=== PATIENT | male | born 1980 | race Caucasian/White ===

== ENCOUNTER 2018-11-19 23:38 | Inpatient (IN) | payer BC, SELFPAY ==
[2018-11-19 23:39] VITALS: BP 128/74; PULSE 87; RESP 14; TEMP 36.1; O2SAT 98; BMI 29.1
[2018-11-20] VITALS (10 sets, daily range): BP systolic 114–134; BP diastolic 63–86; PULSE 52–85; RESP 14–16; TEMP 36.5–37.2; O2SAT 97–100; BMI 26.8
--- NOTE | 2018-11-20 00:58 | ED.VIS.GEN ---
History of Present Illness Chief Complaint: Substance Abuse Informant: Patient Onset: Today Context: Gradual Onset Timing: Continuous Quality: shaky, anxious Location: all over Current Severity: Moderate Maximum Severity: Moderate Worsened by: nothing Relieved by: using heroin, historically Associated Symptoms: abd cramping, nausea, sweats Narrative: Patient. The has a history of it, recently relapsed and has been using daily for 1 to 2 months. Discussed with [facility] and advised to come to the emergency department. Last use was earlier this morning, he has been having withdrawal symptoms tonight. Past Medical History - Allergies and Home Meds Allergies/Adverse Reactions: Allergies Penicillins Allergy (Verified 11/19/18 23:39) Angioedema Primary Care Physician: NOT,DEFINED [NON-STAFF] - Past Medical History: None Lives: Alone Smoking Status: Current every day smoker Alcohol: None Drugs: Heroin - No other drugs Review of Systems General: Reports: Malaise - And shaking all over. Denies: Chills, Fever, Sweats Eyes: Denies: Visual changes - bilaterally, Diplopia ENT: Denies: Rhinorrhea, Sore throat Cardiovascular: Denies: Chest pain, Palpitations Respiratory: Denies: Dyspnea, Cough, Dyspnea on exertion Gastrointestinal: Reports: Abdominal pain, Nausea, Vomiting - occ dry heaves earlier. Denies: Diarrhea, Melena, Hematochezia Genitourinary: Denies: Dysuria, Hematuria, Frequency Musculoskeletal: Denies: Back pain, Extremity Pain Skin: Denies: Rash, Wounds Neurological: Denies: Headache, Weakness, Numbness Psych: Reports: Anxiety. Denies: Suicidal thoughts, Suicidal ideations Physical Exam Vital Signs/Narrative: Vital Signs Temp Pulse Resp BP Pulse Ox 11/19/18 23:39 96.9 F L 87 14 128/74 H 98 Inital Vital Signs reviewed: Yes General: Well nourished, Well developed, No Acute Distress Head: Normocephalic, Atraumatic Eyes: Perrl, EOMI ENT: Moist mucous membranes, No rhinorrhea Neck: Supple, Nontender Cardiovascular: Regular rate, Regular rhythm, No murmurs Respiratory: No distress, CTA bilaterally, Chest nontender Abdomen: Soft, Nontender, Nondistended, Normal bowel sounds Back: Nontender, Normal Inspection Extremities: Nontender, No edema Skin: Normal color, No rash, No Trauma, - - No sign of infected foot or arm track martines. Neurological: Alert, Oriented x3, Cranial nerves II-XII grossly intact, Normal Strength, Normal Sensation Psychological: Normal affect, Normal Mood Diagnostic/Tx/Re-eval - Medical Decision Making His CINA score is 15. Work-up unremarkable. Clinically stable and medically cleared for admission for detox. ED Disposition - Plan for ED Patient: Disposition: Acute Care Hospital [facility] Diagnosis: Opiate dependence Referrals: NOT,DEFINED [NON-STAFF] -
--- NOTE | 2018-11-20 01:01 | PCM.HP.STD ---
Problem List (1) Polysubstance dependence Status: Acute (2) Opioid withdrawal Status: Acute History of Present Illness Date of Admission: 11/20/18 Chief Complaint: polysubstance withdrawal The patient is a 38 year old M with a significant history of tobacco abuse; polysubstance dependence who presented because of withdrawal symptoms. Patient has been shooting heroin into his arm about 3 times every day. The last time that he used heroin was in the morning of the day of his presentation. He complains of tremors and watery discharge from his eyes and his nose. Also he uses crystal meth. Last time he used crystal meth was about 3 days to 1 week. At the emergency department his Cina score was 15. In 2009 he went to a drug withdrawal program at the [facility]. However in September 2018 he relapsed. Reportedly he called [facility] and he was instructed to come to the emergency department. Past Medical History Medical History: Medical History (Last Reviewed 11/20/18 @ 05:07 by Heri Dwyer MD) No Previous medical history Allergies Penicillins Allergy (Verified 11/19/18 23:39) Angioedema Surgical History: no surgical history Lives: With Family Smoking Status: Current every day smoker Tobacco Use: Cigarettes Alcohol: None Drugs: - - Heroin and crystal meth - *Family History Maternal History Items: Diabetes - His paternal grandfather developed diabetes after losing his pancreas from a motor vehicle accident., - Paternal History Items: - - Patient denies knowledge of any paternal medical history Review of Systems Constitutional: Denies: Chills, Fever, Weight Change HEENT: Denies: Head Aches, Sinus Congestion, Sinus Drainage Cardiovascular: Denies: Chest Pain, Palpitations Respiratory: Denies: Cough, Shortness of breath at rest, Sputum production Gastrointestinal: Reports: Abdominal Pain, Nausea Genitourinary: Denies: Dysuria Musculoskeletal: Reports: Muscle pain. Denies: Joint Pain, Joint Tenderness Skin: Denies: Rash, Wounds Neurological: Reports: Tremor. Denies: Focal weakness, Numbness, Tingling Psychiatric: Denies: Anxiety, Depression, Homicidal Ideations, Suicidal Ideations Hematologic/ Lymphatic: Denies: Easy Bruising, Easy Bleeding VTE Information - Inpt Only VTE Present on Admission: No VTE Mechan Device Prophylaxis: None VTE Pharm Prophylaxis ordered?: No Reason prophylaxis not ordered:: Treatment Not Indicated - Low risk. Encouraged to ambulate. Patient Problems: Active and Suspected Problems (Last Updated 11/20/18 @ 02:12 by Heri Dwyer MD) Opiate dependence (Acute) Polysubstance dependence (Acute) Opioid withdrawal (Acute) - Physical Exam General: Alert, Oriented x3, Cooperative HEENT: Atraumatic, PERRLA, EOMI, Normocephalic Neck: Supple, No JVD, Negative Carotid Bruits Lungs: Clear to auscultation, Normal air movement Cardiovascular: Regular rate, No murmurs Abdomen: Bowel Sounds Present, Soft, Non Tender Extremities: No edema, Capillary Refill Less than 3 Seconds Skin: No rashes, No breakdown Musculoskeletal: No Tenderness to Palpation of Joints or Extremities Neurological: Cranial nerves II-XII grossly intact Psych/Mental Status: Normal Affect, Appropriate Vital Signs Temp Pulse Resp BP Pulse Ox 96.9 F L 87 14 128/74 H 98 11/19/18 23:39 11/19/18 23:39 11/19/18 23:39 11/19/18 23:39 11/19/18 23:39 Oxygen Delivery Method Room Air Weight: 84.368 kg Body Mass Index (BMI) 29.1 Laboratory Tests Past 24 Hrs 11/20/18 00:46 Urine Opiates Screen Pending Urine Methadone Screen Pending Ur Barbiturates Screen Pending Ur Phencyclidine Scrn Pending Ur Amphetamines Screen Pending U Methamphetamin-MDMA Pending U Benzodiazepines Scrn Pending Urine Cocaine Screen Pending U Cannabinoids Screen Pending Ur Drug Screen Comment Assessment/Plan All Active Problems (Last Updated 11/20/18 @ 02:12 by Heri Dwyer MD) Opiate dependence (Acute) Polysubstance dependence (Acute) Opioid withdrawal (Acute) The patient is a 38 year old M with a significant history of tobacco abuse; polysubstance dependence who presented because of withdrawal symptoms consistent with polysubstance dependence with withdrawal. Polysubstance dependence with withdrawal Will place on [facility] opioid withdrawal with buprenorphine Other supportive medication includes clonidine; Bentyl; Vistaril; methocarbamol; Zofran and Mirapex. Consult placed for [facility] Patient was counseled. Tobacco abuse Counseled Declined nicotine patch. DVT prophylaxis Low risk Encouraged to ambulate. Code Visit Inpatient E&M: 23692 Init Hosp L3
[2018-11-20] MEDS: LORazepam 2 MG/ML Syringe 1 MG IV (01:12)
[2018-11-20 01:15] LABS: Amphetamine Urine VISTA POSITIVE (<1000 ng/mL); Barbiturate Urine VISTA NEGATIVE (< 200 ng/mL); Benzodiazepine Urine VISTA NEGATIVE (< 200 ng/mL); Cocaine Urine VISTA POSITIVE (< 300 ng/mL); Ecstacy Urine VISTA NEGATIVE (< 500 ng/mL); Methadone Urine VISTA NEGATIVE (< 300 ng/mL); PCP Urine VISTA NEGATIVE (< 25 ng/mL); THC Urine VISTA NEGATIVE (< 50 ng/mL); Vista UDS pH Range 6
[2018-11-20 01:42] LABS: ALB/GLOB Ratio 0.8 RATIO (0.9-2.4); AST(SGOT) 46 U/L (15-37); Alanine Aminotransfer ALT/SGPT 34 U/L (16-61); Albumin, Serum 3.5 g/dL (3.2-5.0); Alkaline Phosphatase 125 U/L (45-117); Anion Gap 4 (5-15); BUN 14 mg/dL (7-18); BUN/Creat Ratio 15.5 RATIO (10-20); Calcium,Total 8.8 mg/dL (8.5-10.1); Chloride 104 mmol/L (98-107); EST Glomerular Filtration Rate 101 mL/min (>60); Est Glom Filt Rate - Afr Amer 122 mL/min (>60); Estimated Creatinine Clearance 106.09 ml/min; Globulin 4.2 g/dL (2.2-4.2); Glucose 64 mg/dL (74-106); Potassium 4.4 mmol/L (3.5-5.1); Protein, Total 7.7 g/dL (6.4-8.2); Sodium Level 136 mmol/L (136-145)
[2018-11-20] MEDS: Methocarbamol 750 MG Tablet PO ×2 (02:28→17:48)
[2018-11-20] MEDS: Buprenorphine HCl 2 MG TAB.SUBL SL ×3 (02:29→17:48)
--- NOTE | 2018-11-20 10:14 | PN_ITS ---
Patient Problems: Active and Suspected Problems (Last Reviewed 11/20/18 @ 05:07 by Heri Dwyer MD) Opiate dependence (Acute) Polysubstance dependence (Acute) Opioid withdrawal (Acute) Subjective: The patient is a 37 YO M with a PMH of polysubstance abuse, migraines and tobacco dependence who presented to the ED at [facility] in the early hours of 11/20 c/o sweats, shakiness, abd cramping, rhinorrhea and nausea. He last used heroin on the morning of 11/19/18. In addition to heroin he also uses meth, but not daily. He has previously attended a rehab program in 2009 at the [facility] and was clean but, relapsed in September of 2018. He tells me he relapsed because he was in the wrong place and with the wrong friends. Admits to using 4-5 bags f heroin a day and meth occasionally. He was admitted to the [facility] program and was started on a Suboxone taper. AF, VSS, pulse ox is 97% on RA. All lab was personally reviewed. The BMP is unremarkable. LFT's show a very mildly elevated AST and AP. Drug screen was positive for opiates, amphetamines, Cocaine. - Physical Exam General: Cooperative, - - looks ill, pale, sleepy but, woke up to talk with me HEENT: Atraumatic, PERRLA, EOMI, Normocephalic Oral: Moist Mucosa Lungs: Clear to auscultation Cardiovascular: Regular rate, Regular Rhythm, Normal S1, Normal S2, No Gallop Abdomen: Bowel Sounds Present, Soft, Non Tender, Non-Distended Extremities: No cyanosis, No edema Neurological: Cranial nerves II-XII grossly intact, Neuro grossly intact Psych/Mental Status: Normal Affect, Appropriate Vital Signs Temp Pulse Resp BP Pulse Ox 98.2 F 52 L 16 117/76 97 11/20/18 09:34 11/20/18 09:35 11/20/18 09:34 11/20/18 09:34 11/20/18 07:05 Oxygen Delivery Method Room Air Weight: 171 lb 1.259 oz Body Mass Index (BMI) 26.8 Intake and Output for Last 24 Hours 11/18/18 11/19/18 11/20/18 23:59 23:59 23:59 Intake Total 200 / 200 Balance 200 / 200 Laboratory Tests Past 24 Hrs 11/20/18 11/20/18 11/20/18 00:46 01:05 01:05 WBC Cancelled Corrected WBC Cancelled RBC Cancelled Hgb Cancelled Hct Cancelled MCV Cancelled MCH Cancelled MCHC Cancelled RDW Cancelled RDW Differential Cancelled Plt Count Cancelled MPV Cancelled Immature Gran % (Auto) Cancelled Neut % (Auto) Cancelled Lymph % (Auto) Cancelled Catron % (Auto) Cancelled Eos % (Auto) Cancelled Baso % (Auto) Cancelled Absolute Neuts (auto) Cancelled Absolute Lymphs (auto) Cancelled Total Counted Cancelled Neutrophils % (Manual) Cancelled Band Neutrophils % Cancelled Lymphocytes % (Manual) Cancelled Monocytes % (Manual) Cancelled Eosinophils % (Manual) Cancelled Basophils % (Manual) Cancelled Metamyelocytes % Cancelled Myelocytes % Cancelled Promyelocytes % Cancelled Blast Cells % Cancelled Plasma Cell % (Manual) Cancelled Other Cells % Cancelled Nucleated RBCs/100 WBC Cancelled Differential Comment Cancelled Diff Path Review Cancelled Hypersegmented Neuts Cancelled Atypical Lymphocytes Cancelled Reactive Lymphocytes Cancelled Smudge Cells Cancelled Toxic Granulation Cancelled Toxic Vacuolation Cancelled Dohle Bodies Cancelled Sravani Rods Cancelled Platelet Estimate Cancelled Plt Morphology Comment Cancelled RBC Morphology Cancelled Polychromasia Cancelled Hypochromasia Cancelled Poikilocytosis Cancelled Basophilic Stippling Cancelled Anisocytosis Cancelled Microcytosis Cancelled Macrocytosis Cancelled Spherocytes Cancelled Sickle Cells Cancelled Target Cells Cancelled Tear Drop Cells Cancelled Ovalocytes Cancelled Stomatocytes Cancelled Avelar-Boulevard Bodies Cancelled Cresencio Cells Cancelled Bite Cells Cancelled Crenated Cell Cancelled Acanthocytes (Spur) Cancelled Rouleaux Cancelled Schistocytes Cancelled Sodium 136 Potassium 4.4 Chloride 104 Carbon Dioxide 28.0 Anion Gap 4 L BUN 14 Creatinine 0.90 Estim Creat Clear Calc 106.09 Est GFR (MDRD) Af Amer 122 Est GFR (MDRD) Non-Af 101 BUN/Creatinine Ratio 15.5 Glucose 64 L Calcium 8.8 Total Bilirubin 0.30 AST 46 H ALT 34 Alkaline Phosphatase 125 H Total Protein 7.7 Albumin 3.5 Globulin 4.2 Albumin/Globulin Ratio 0.8 L Urine Opiates Screen POSITIVE H Urine Methadone Screen NEGATIVE Ur Barbiturates Screen NEGATIVE Ur Phencyclidine Scrn NEGATIVE Ur Amphetamines Screen POSITIVE H U Methamphetamin-MDMA NEGATIVE U Benzodiazepines Scrn NEGATIVE Urine Cocaine Screen POSITIVE H U Cannabinoids Screen NEGATIVE Ur Drug Screen Comment Ethyl Alcohol 11/20/18 01:05 WBC Corrected WBC RBC Hgb Hct MCV MCH MCHC RDW RDW Differential Plt Count MPV Immature Gran % (Auto) Neut % (Auto) Lymph % (Auto) Catron % (Auto) Eos % (Auto) Baso % (Auto) Absolute Neuts (auto) Absolute Lymphs (auto) Total Counted Neutrophils % (Manual) Band Neutrophils % Lymphocytes % (Manual) Monocytes % (Manual) Eosinophils % (Manual) Basophils % (Manual) Metamyelocytes % Myelocytes % Promyelocytes % Blast Cells % Plasma Cell % (Manual) Other Cells % Nucleated RBCs/100 WBC Differential Comment Diff Path Review Hypersegmented Neuts Atypical Lymphocytes Reactive Lymphocytes Smudge Cells Toxic Granulation Toxic Vacuolation Dohle Bodies Sravani Rods Platelet Estimate Plt Morphology Comment RBC Morphology Polychromasia Hypochromasia Poikilocytosis Basophilic Stippling Anisocytosis Microcytosis Macrocytosis Spherocytes Sickle Cells Target Cells Tear Drop Cells Ovalocytes Stomatocytes Avelar-Boulevard Bodies Cresencio Cells Bite Cells Crenated Cell Acanthocytes (Spur) Rouleaux Schistocytes Sodium Potassium Chloride Carbon Dioxide Anion Gap BUN Creatinine Estim Creat Clear Calc Est GFR (MDRD) Af Amer Est GFR (MDRD) Non-Af BUN/Creatinine Ratio Glucose Calcium Total Bilirubin AST ALT Alkaline Phosphatase Total Protein Albumin Globulin Albumin/Globulin Ratio Urine Opiates Screen Urine Methadone Screen Ur Barbiturates Screen Ur Phencyclidine Scrn Ur Amphetamines Screen U Methamphetamin-MDMA U Benzodiazepines Scrn Urine Cocaine Screen U Cannabinoids Screen Ur Drug Screen Comment Ethyl Alcohol 7.0 Medical Necessity - Tobacco Use Smoking Status: Current every day smoker Tobacco Use: Cigarettes Assessment/Plan All Active Problems (Last Reviewed 11/20/18 @ 05:07 by Heri Dwyer MD) Opiate dependence (Acute) Polysubstance dependence (Acute) Opioid withdrawal (Acute) Impressions 1. acute opiate withdrawal 2. opiate dependence 3. Methamphetamine use and also cocaine in the urine drug screen 4. tobacco dependence Continue the [facility] protocol for acute opiate withdrawal Will meet with the [facility] guest experience representative on Thursday to discuss plans for discharge Code Visit Inpatient E&M: 01481 Subs Hosp L2
[2018-11-20] MEDS: cloNIDine HCl 0.1 MG Tablet PO ×3 (14:18→21:50)
[2018-11-20] MEDS: hydrOXYzine PAM 25 MG Capsule 50 MG PO (14:19)
[2018-11-21] VITALS (7 sets, daily range): BP systolic 109–115; BP diastolic 59–69; PULSE 57–80; RESP 14–18; TEMP 36.3–36.9; O2SAT 97–98
[2018-11-21] MEDS: Buprenorphine HCl 2 MG TAB.SUBL SL ×3 (01:32→18:16)
[2018-11-21] MEDS: hydrOXYzine PAM 25 MG Capsule 50 MG PO (10:12)
[2018-11-21] MEDS: cloNIDine HCl 0.1 MG Tablet PO (10:12)
--- NOTE | 2018-11-21 12:55 | PN_ITS ---
Patient Problems: Active and Suspected Problems (Last Reviewed 11/20/18 @ 05:07 by Heri Dwyer MD) Opiate dependence (Acute) Polysubstance dependence (Acute) Opioid withdrawal (Acute) Subjective: The patient is a 38-year-old male admitted to the [facility] program for acute opiate withdrawal. He has previously been in rehab at the [facility] and had been clean since 2009. He started using again in September 2018. He is also using methamphetamine occasionally. Urine tox screen was positive for opiates, amphetamines and cocaine. Afebrile, vital signs stable, 98% on room air. Doing better today. Has been up taking shower. - Physical Exam Vital Signs Temp Pulse Resp BP Pulse Ox 97.7 F L 64 16 110/68 98 11/21/18 10:13 11/21/18 10:15 11/21/18 10:13 11/21/18 10:13 11/21/18 06:32 Oxygen Delivery Method Room Air Weight: 171 lb 1.259 oz Body Mass Index (BMI) 26.8 Intake and Output for Last 24 Hours 11/19/18 11/20/18 11/21/18 23:59 23:59 23:59 Intake Total 200 / 200 300 / 300 Balance 200 / 200 300 / 300 Medical Necessity - Tobacco Use Smoking Status: Current every day smoker Tobacco Use: Cigarettes Assessment/Plan All Active Problems (Last Reviewed 11/20/18 @ 05:07 by Hrei Dwyer MD) Opiate dependence (Acute) Polysubstance dependence (Acute) Opioid withdrawal (Acute)
--- NOTE | 2018-11-21 18:31 | DCINST_ITS ---
- Discharge Diagnoses Current Active Problems: Current Active and Chronic Problems (Last Reviewed 11/20/18 @ 05:07 by Heri Dwyer MD) Opiate dependence (Acute) Polysubstance dependence (Acute) Opioid withdrawal (Acute) You will use the following diet at home:: No restrictions Your food should be the consistency of: Regular Your liquids should be the consistency of: Regular/Thin Discharge Activity: Return to Normal Activity Call your doctor if you observe: Fever of 101 or Higher Additional Instructions: You would only be getting 2 more doses of Subuxone. 2 mg tonight and 2 mg in the Morning. I am giving you a prescription for Clonidine 0.1 mg. This helps with withdrawal symptoms and you can take 1 twice a day for the next few days to help with symptoms. Good luck to you. Allergies/Adverse Reactions: Allergies Penicillins Allergy (Verified 11/19/18 23:39) Angioedema Medications to take at Discharge Clonidine HCl [Catapres] 0.1 mg PO Q2H PRN PRN #10 tab 11/21/18 The following prescriptions were given: Clonidine HCl [Catapres] 0.1 mg PO Q2H PRN PRN #10 tab PRN Reason: Hot/Cold Sweats or Anxiety Prescription Printed Primary Care Physician: NOT,DEFINED [NON-STAFF] - Test Results: Test results from this visit will be discussed in further detail at your follow- up appointment, if applicable. Proposed Discharge Date: 11/21/18
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
== END 2018-11-21 19:20 | disposition home or self-care (01) | DRG 897 ==
LOC: ED 11-20 01:10 → MS3 11-20 03:00
PROVIDERS: Admitting Provider Hospitalist; Emergency Provider Emergency Medicine; Referring Provider Hospitalist; Visit Provider Internal Medicine
DX: F11.23 Opioid dependence with withdrawal (principal); F19.10 Other psychoactive substance abuse, uncomplicated; F17.210 Nicotine dependence, cigarettes, uncomplicated
CPT/HCPCS: 80053; 80307; 80320; 99285; 99406; A4216; G0480